=== PATIENT | male | born 1950 | race Two or more races ===

== ENCOUNTER 2024-11-22 09:22 | Day surgery (SDC) | payer OTHER, BC ==
[2024-11-17 14:30] VITALS: BMI 25.9
[2024-11-22] MEDS ORDERED: ceFAZolin SODIUM 1 GM VIAL ONE (11:19)
[2024-11-22] MEDS ORDERED: MIDAZOLAM HCL 2 MG/2 ML SINGLE DOSE VIAL ONE ×2 (11:22→14:35)
[2024-11-22] MEDS ORDERED: ONDANSETRON 4 MG/2 ML VIAL ONE (11:23)
[2024-11-22] MEDS ORDERED: METOCLOPRAMIDE HCL INJECTION 10 MG/2 ML VIAL ONE (11:23)
[2024-11-22] MEDS ORDERED: DEXAMETHASONE SOD PHOSPHATE 4 MG/1 ML VIAL ONE (11:23)
[2024-11-22] MEDS ORDERED: PROPOFOL 20 ML ONE (11:25)
[2024-11-22] MEDS ORDERED: SODIUM CHLORIDE 0.9% P/F 10 ML VIAL IJ ONE (11:28)
[2024-11-22] MEDS ORDERED: PROPOFOL 60 ML ONE (11:30)
[2024-11-22] MEDS ORDERED: TRANEXAMIC ACID 1000 MG/10 ML VIAL ONE ×2 (11:48→16:42)
[2024-11-22] MEDS ORDERED: BUPIVACAINE LIPOSOME/PF (EXPAREL) 266 MG/20 ML VIAL ONE (12:23)
[2024-11-22] MEDS ORDERED: BUPIVACAINE HCL/PF 0.5% (5 MG/ML) 30 ML VIAL IJ ONE (12:23)
[2024-11-22] MEDS ORDERED: ACETAMINOPHEN INJECTION 100 ML ONE (12:23)
[2024-11-22] MEDS ORDERED: BUPIVACAINE HCL/PF 0.5% (5MG/ML) 10 ML VIAL ONE (12:30)
[2024-11-22] MEDS ORDERED: oxyCODONE HCL 5 MG TABLET PO PRN (14:00)
[2024-11-22] MEDS ORDERED: NALOXONE HCL 0.4 MG/ML VIAL IVPUSH PRN (14:00)
[2024-11-22] MEDS ORDERED: ACETAMINOPHEN 500 MG TABLET (FP) PO PRN (14:00)
[2024-11-22] MEDS ORDERED: HEPARIN NA (PORCINE) 5,000 UNITS/ML 1ML VIAL ONE (14:38)
[2024-11-22] MEDS ORDERED: VANCOMYCIN 1,000 MG VIAL (RESTRICTED TO ID ONLY) ONE ×2 (14:38→15:28)
[2024-11-22] MEDS ORDERED: BUPIVICAINE 0.25%/MORPH PF/KETOROLAC - 51ML DISP.SYRINGE IA ONE (15:52)
[2024-11-22] MEDS: VANCOMYCIN 1,000 MG VIAL (RESTRICTED TO ID ONLY) IVPB ONE (16:55)
[2024-11-22] MEDS: BUPIVICAINE 0.25%/MORPH PF/KETOROLAC - 51ML DISP.SYRINGE IA ONE (17:07)
[2024-11-22] MEDS ORDERED: MAG HYDROX/AL HYDROX/SIMETH 30 ML UNIT-DOSE CUP PO PRN (17:34)
[2024-11-22] MEDS ORDERED: ONDANSETRON 4 MG/2 ML VIAL IVPUSH PRN (17:34)
[2024-11-22 18:52] VITALS: RESP 18
[2024-11-22] MEDS: LACTATED RINGERS SOLUTION 1,000 ML IV SCH (19:15)
[2024-11-22] MEDS: SENNOSIDES/DOCUSATE COMBO (SENNA PLUS) TABLET (UD) PO SCH (21:28)
[2024-11-22] MEDS: GABAPENTIN 300 MG CAPSULE PO SCH (21:28)
[2024-11-22] MEDS: CEFAZOLIN SODIUM 2 GM in DEXTROSE 5%-WATER 100 ML IVPB SCH (23:10)
[2024-11-23] MEDS: ACETAMINOPHEN 500 MG TABLET (FP) PO PRN (04:55)
[2024-11-23] MEDS: LACTATED RINGERS SOLUTION 1,000 ML IV SCH (06:33)
[2024-11-23 08:07] LABS: HEMATOCRIT 39.9 % (40.1-51.0); MCHC 32.6 g/dl (32.3-36.5); MEAN CELL VOLUME 91.9 fl (79.0-92.2); MEAN PLT VOLUME 10.3 fl (9.4-12.4); PLATELET COUNT 212 x10^3/uL (163-337); RDW 13.9 % (12.2-16.6)
[2024-11-23] MEDS: GABAPENTIN 100 MG CAPSULE PO SCH (08:26)
[2024-11-23] MEDS: oxyCODONE HCL 5 MG TABLET PO PRN (08:26)
[2024-11-23 08:50] LABS: CALCIUM 8.5 mg/dl (8.5-10.1); POTASSIUM 3.9 mmol/L (3.5-5.1)
[2024-11-23] MEDS: DOCUSATE SODIUM 100 MG CAPSULE (FP) PO SCH (09:07)
[2024-11-23] MEDS: PANTOPRAZOLE 40 MG TABLET PO SCH (09:07)
[2024-11-23] MEDS: ASPIRIN COATED 81 MG TABLET.EC PO SCH (09:07)
[2024-11-23] MEDS: MULTIVITAMINS (DAILY MVI) TABLET (FP) PO SCH (09:07)
[2024-11-23 13:55] VITALS: BP 117/68; PULSE 86; TEMP 99.7
== END 2024-11-23 17:55 | disposition home health service (06) ==
LOC: FASUSAT 09:22 → SUATTDRO 09:22 → FM/S 18:35 → FASUSAT 11-23 17:55
PROVIDERS: ATTEND Internal Medicine
PROC: 0SRD0JA Replacement of Left Knee Joint with Synthetic Substitute, Uncemented, Open Approach (ICD-10-PCS; principal; 2024-11-22 15:54)
DX: M17.12 Unilateral primary osteoarthritis, left knee (principal)
CPT/HCPCS: 20985; 27447; C1776; S2900; 36415; 73560-TC-LT-FY; 80048; 85027; 88305-TC; 88311-TC; 94760; 97010-GP; 97116-GP; 97162-GP; J0131; J0666; J1644